=== PATIENT | male | born 1980 | race Caucasian/White ===

== ENCOUNTER → 2019-11-15 12:26 | Outpatient (CLI) | payer OTHER, SELFPAY ==
--- NOTE | 2019-11-15 12:29 | XR_ITS ---
PROCEDURE: XR HAND RT MIN 3V CLINICAL INDICATION: hand mass COMPARISON: No exams were available for comparison FINDINGS: No fracture or dislocation. No lytic or blastic change. There is normal mineralization. The joint spaces are well-preserved. No significant degenerative/arthritic changes. No erosive changes evident. Other findings:There is a focal area of soft tissue swelling along the ulnar aspect of the 5th metacarpophalangeal joint measuring 17 mm. No underlying calcification or bony erosive process. There is a small sclerotic focus along the proximal and ulnar aspect of the middle phalanx of the 3rd digit. IMPRESSION: 1. No acute bony findings. 2. 17 mm soft tissue mass along the 5th metacarpophalangeal joint medially. This may be better evaluated with MRI without and with contrast if clinically warranted Dictated by: Rell Dunlap MD 11/15/2019 12:41 Rell Dunlap MD in [place] 11/15/2019 12:41
== END ==
PROVIDERS: PCP Family Medicine; Visit Provider Orthopaedic Surgery
DX: R22.30 Localized swelling, mass and lump, unspecified upper limb (principal)
CPT/HCPCS: 73130

== ENCOUNTER → 2019-12-06 10:32 | Outpatient (CLI) | payer OTHER, SELFPAY ==
[2019-12-06 14:34] LABS: Coronavirus 19 IgG Antibody Negative (Negative); Coronavirus 19 IgM Antibody Negative (Negative)
== END ==
PROVIDERS: Visit Provider Orthopaedic Surgery
DX: R22.31 Localized swelling, mass and lump, right upper limb (principal); Z01.818 Encounter for other preprocedural examination
CPT/HCPCS: 36415; 86328

== ENCOUNTER 2019-12-07 06:13 | Day surgery (SDC) | payer OTHER, SELFPAY ==
[2019-12-06 10:17] VITALS: BMI 29.5
[2019-12-07] VITALS (12 sets, daily range): BP systolic 116–159; BP diastolic 74–93; PULSE 51–62; RESP 13–18; TEMP 36.1–36.7; O2SAT 94–99
--- NOTE | 2019-12-07 07:41 | HMH.ANESCL ---
[facility] Anesthesia Checklist - Patient Identification Patient Identification: Arm Band - Structural Data Admitted From: Home Planned Operative Procedure/s: excision right hand mass Consent for Planned Operative Procedure(s) Verified: Yes Verified Documents: Surgical Consent, History and Physical - NPO Status Verified Time NPO: 00:00 - Additional verifications Anesthesia Reactions: No Hx Blood Transfusions: No Blood Transfusion Reaction: No - Airway Assessment C-Spine Mobility Assessed: Yes (mp2) TMJ Mobility Assessed: Yes Dentition: Poor Dentition - Neurological Assessment Level of Consciousness: Awake, Alert - Anesthesia Plan Anesthesia Risk discussed: Yes Anesthesia Plan: Verified ASA Class: II Anesthesia Type: General [facility] History I have reviewed the patient's past medical history: Yes Medical History: Reports:: Gastroesophageal Reflux Disease(GERD), Hypertension Denies:: Cancer, Diabetes Mellitus Type 1, Diabetes Mellitus Type 2, Internal Pacemaker, MRSA, Seizures *Have you ever received a pneumonia vaccine?: No *Have you received a flu vaccine this season?: No Other Medical History: Denies: Blood Transfusion Reaction Anesthesia experience/problems:: nac Laterality Cases: Right: Arthroscopy Knee Other Surgeries: Yes: Hernia Repair. No: Pacemaker Amputation: No Fractures: No - *Social History Last grade of school completed: GED Smoking Status: Current every day smoker Tobacco Type: cigarettes # Packs/Day (cigarettes): 1 Alcohol Intake: current Alcohol Intake Frequency:: holidays/special occasions only Substance Use Type: denies use *Occupational Status:: other Housing: house Household Members: spouse *Travel in the last 8 weeks: None Family Hx:: No significant family history
[2019-12-07 08:28] LABS: Basophils # 0.1 K/mm3 (0-0.2); Basophils % 0.9 % (0.1-2.0); Chloride 112 mmol/L (98-107); Eosinophils # 0.3 K/mm3 (0.0-0.4); Eosinophils % 3.3 % (0.1-12.0); Hematocrit 36.7 % (42.0-52.0); Hemoglobin 13.1 g/dL (14.1-18.0); Lymphocytes # 2.9 K/mm3 (0.7-4.5); Lymphocytes % 31.4 % (10-50); Mean Corpuscular HGB Conc 35.8 g/dL (31.8-35.4); Mean Corpuscular Hemoglobin 32.9 pg (27.0-31.2); Mean Corpuscular Volume 91.9 fl (80-94); Mean Platelet Volume 8.3 fl (7.4-10.4); Monocytes # 0.7 K/mm3 (0.1-1.0); Monocytes % 7.5 % (1.7-9.3); Neutrophils # 5.3 K/mm3 (1.8-7.8); Platelet Count 223 K/mm3 (142-424); Potassium 3.9 mmoL/L (3.5-5.1); Red Blood Count 3.99 M/mm3 (4.60-6.20); Red Cell Distribution Width 13.5 % (11.5-17.5); Sodium 139 mmol/L (136-145); White Blood Count 9.2 K/mm3 (4.8-10.8)
[2019-12-07 08:31] LABS: Alanine Aminotransferase 36 U/L (12-78); Albumin Level 3.5 g/dl (3.5-5.0); Albumin/Globulin Ratio 1.4 (1.1-1.8); Alkaline Phosphatase 59 U/L (38-126); Anion Gap 10.9 mEq/L (5-15); Aspartate Amino Transferase 25 U/L (17-59); Bilirubin,Total 0.3 mg/dl (0.2-1.3); Blood Urea Nitrogen 19 mg/dl (9-20); Calcium 8.6 mg/dl (8.4-10.2); Carbon Dioxide 20 mmol/L (22.0-30.0); Creatinine Clearance Estimated 130 mL/min (50-200); Estimated Glomerular Filt Rate 75 ml/min (>60); GFR (African American) 90 ML/MIN (>60); Globulin 2.5 g/dL (1.3-3.2); Glucose 119 mg/dl (74-100)
[2019-12-07 08:37] LABS: C-Reactive Protein 4.5 mg/L (0-4)
--- NOTE | 2019-12-07 09:00 | P.PN_ITS ---
[facility] Anesthesia Record Part I Intake, IV Amount: 1,000 Estimated blood loss (mL): 5 Urine output (mL): 0 Blood Pressure: 128/84 SaO2: 94 Pulse Rate: 57 Respiratory Rate: 16 Temperature: 97.6 F Patient is:: Drowsy, Stable Stable to PACU at:: 08:55
[2019-12-07 09:18] LABS: Erythrocyte Sedimentation Rate 19 mm/hr (0-15)
--- NOTE | 2019-12-07 10:47 | HMH.ANESII ---
[facility] Anesthesia Record Part II Discharge Time: 09:30 Destination: Surgical Day Care (OP Surgery) PACU nurse assessment reviewed?: Yes Patient Condition:: Good Anesthesia Complications:: None Swallowing reflex intact?: Yes Cyanosis?: No Blood Pressure: 127/84 Pulse Rate: 62 Temperature: 98 F Mental Status: Alert & Oriented Pain level:: 0 Nausea and/or vomitting:: None Intake, IV Amount: 0
--- NOTE | 2019-12-07 13:03 | HMH.OPNOTE ---
Date of procedure: 12/07/19 Pre-op Diagnosis:: R hand mass Post-op Diagnosis:: R hand mass Procedure performed:: excision of R hand mass Surgeon:: Luna Rendon MD Metal Neutralizer(s):: Kailey Archuleta [employer] COORDINATOR:: Neno Moffett Anesthesia: regional (wrist block peformed by ), LMA Estimated blood loss (mL): 5 Clinical Note:: 39-year-old [id number] male with a mass over the dorsal/ulnar aspect of the right hand, present for several months. He is unsure when it first appeared. He thinks it may have happened after he hit it on something but doesn't know what/when. He denies any history of open wounds or cuts over this region. No history of similar masses in the past, no history of rheumatoid arthritis, no exposure to thorny plants or known insect bites or animal scratches. The mass is large, relatively immobile and slightly erythematous. No drainage reported from the mass, no numbness or tingling in the fingers. It is beginning to limit his ability to put his hand in his pocket and he would like it removed if possible. MRI was ordered with and without contrast, which was non-specific. I discussed treatment options with the patient, and given the discomfort it gives him, it's location/size, and the inability to exclude malignancy based on MRI, I recommend mass excision. The clinical appearance does not appear consistent with a malignant tumor, but MRI does not exclude this. The mass is small enough that rather than incisional biopsy I would recommend excising the entire mass and sending it for both pathology and culture. Surgical incision will be planned along the lines of possible future surgery including possible amputation. I discussed the risks of the procedure with the patient, including but not limited to: bleeding, infection, neurovascular damage, possibility of further surgical treatment if malignancy found, risk of continued pain and post-op stiffness, and risk of anesthesia. The patient vocalized understanding and informed consent obtained. Operative findings:: mass measured 2.7cm W x 2.1 cm L Operative note:: The patient was identified in preoperative holding and the R hand signed by myself. Consent was verified with the patient and all questions answered. He was then taken to the OR and placed supine on the operative table with a hand table attached. 2 g Ancef were infused and general anesthesia with an LMA. Once the patient was anesthetized a non-sterile tourniquet was placed on the upper R arm and the R hand was prepped and draped in the usual sterile. Timeout was performed, identifying the correct patient, correct procedure, and correct site. The mass was localized over the dorsal/ulnar aspect of the R hand over the 5th metacarpal head. The right upper extremity was elevated for 3 minutes and tourniquet inflated to 250 mmHg. An incision was made longitudinally over the center of the mass, well out of the way for any possible future incisions needed for salvage or amputation procedures. The skin only was incised, and it became immediately obvious that that mass was adherent to the overlying skin. Tenotomy scissors were used to develop a plane between the mass and the skin, and with blunt dissection tissue was dissected circumferentially around the entire mass. Portions of the mass were easily removed, but a large portion of the mass was adherent to the overlying skin. The mass was removed in several pieces, including an elliptical swath of skin in the center of the mass, which would also allow easier/more cosmetic wound closure. The mass was entirely extra-articular and did not involve the extensor tendons. It did envelope a small but dilated vein over the ulnar aspect of the hand, which could not be spared and was tied with 3-0 silk ties and transected. No nerves were visualized. The mass itself was firm and rubbery, yellowish-white in color, without obvious purulent or necrotic material, no foul smell. Of note, I did see what may be a small forieg
== END 2019-12-07 10:05 | disposition home or self-care (01) ==
LOC: OR 06:14
PROVIDERS: PCP Family Medicine; Visit Provider Orthopaedic Surgery
PROC: (CPT 26111; principal; 2019-12-07 07:30)
DX: R22.41 Localized swelling, mass and lump, right lower limb (principal)
CPT/HCPCS: 26111; 80053; 85025; 85651; 86140; 87070; 87075; 87102; 87205; 87206; 96374; J2405

== ENCOUNTER → 2020-12-07 09:00 | Outpatient (CLI) | payer OTHER, SELFPAY ==
[2020-12-07 10:35] LABS: Chloride 109 mmol/L (98-107); Potassium 4.4 mmoL/L (3.5-5.1); Sodium 144 mmol/L (136-145)
[2020-12-07 10:38] LABS: Alanine Aminotransferase 30 U/L (12-78); Albumin Level 4.2 g/dl (3.5-5.0); Albumin/Globulin Ratio 1.4 (1.1-1.8); Alkaline Phosphatase 75 U/L (38-126); Anion Gap 16.4 mEq/L (5-15); Aspartate Amino Transferase 26 U/L (17-59); Bilirubin,Total 0.4 mg/dl (0.2-1.3); Blood Urea Nitrogen 14 mg/dl (9-20); Calcium 9.7 mg/dl (8.4-10.2); Carbon Dioxide 23 mmol/L (22.0-30.0); Chol/HDL Ratio 9.2 (1-3.5); Cholesterol 193 mg/dl (140-200); Estimated Glomerular Filt Rate 67 ml/min (>60); GFR (African American) 81 ML/MIN (>60); Globulin 2.9 g/dL (1.3-3.2); Glucose 107 mg/dl (74-100); HDL Cholesterol 21 mg/dl (40-60); Total Protein,Serum 7.1 g/dl (6.3-8.2)
[2020-12-07 10:39] LABS: Triglycerides 445 mg/dl (30-150)
[2020-12-07 10:50] LABS: Direct LDL Cholesterol 85.42 mg/dL (100-129)
[2020-12-07 10:57] LABS: Creatinine,Urine Random 95 mg/dL (Not Estab.)
[2020-12-07 11:06] LABS: Microalbumin < 6.000 mg/L (0-16.7)
[2020-12-07 11:10] LABS: Thyroid Stimulating Hormone 2.32 uIU/mL (0.465-4.68)
== END ==
PROVIDERS: Visit Provider Family Medicine
DX: I10 Essential (primary) hypertension (principal); Z79.899 Other long term (current) drug therapy
CPT/HCPCS: 36415; 80053; 80061; 82043; 82570; 84443

== ENCOUNTER → 2021-01-17 10:39 | Outpatient (CLI) | payer OTHER, SELFPAY ==
[2021-01-17 11:45] LABS: Barbiturates Screen,Urine Negative ng/ml (<200); Benzodiazepines Screen,Urine Negative ng/ml (<200)
[2021-01-17 11:46] LABS: Amphetamine/Metha Screen,Urine Negative ng/ml (<1000)
[2021-01-17 11:47] LABS: Cannabinoid Screen,Urine Negative ng/ml (<50); Methadone Screen,Urine Negative ng/ml (<300)
[2021-01-17 11:48] LABS: Cocaine Screen,Urine Negative ng/ml (<300); Opiate Screen,Urine Negative ng/ml (<300)
[2021-01-17 11:49] LABS: Phencyclidine Screen,Urine Negative ng/ml (<25)
== END ==
PROVIDERS: Visit Provider Physician Assistant
DX: Z02.1 Encounter for pre-employment examination (principal)
CPT/HCPCS: 80305

== ENCOUNTER → 2021-03-07 08:52 | Outpatient (CLI) | payer BC, OTHER, SELFPAY | PROVIDERS: PCP Family Medicine; Visit Provider Nurse Practitioner | DX: U07.1 COVID-19 (principal) | CPT/HCPCS: C9803; U0003; U0005 ==

== ENCOUNTER → 2021-03-09 10:18 | Outpatient (CLI) | payer BC, OTHER, SELFPAY | PROVIDERS: PCP Family Medicine; Visit Provider Nurse Practitioner | DX: Z20.822 Contact with and (suspected) exposure to COVID-19 (principal) | CPT/HCPCS: C9803; U0003; U0005 ==

== ENCOUNTER → 2022-01-11 18:29 | Outpatient (CLI) | payer BC, OTHER, SELFPAY ==
[2022-01-11 18:59] LABS: Adenovirus,PCR Not Detected (NotDetected); Bordetella Pertussis Not Detected (NotDetected); Chlamydophila Pneumoniae, PCR Not Detected (NotDetected); Coronavirus 19, PCR Not Detected (NotDetected); Coronavirus 229E Not Detected (NotDetected); Coronavirus NL63 Not Detected (NotDetected); Coronavirus OC43 Not Detected (NotDetected); Coronovirus HKU1,PCR Not Detected (NotDetected); Human Metapneumovirus Not Detected (NotDetected); Influenza A, PCR Not Detected (NotDetected); Influenza AH1, 2009 Not Detected (NotDetected); Influenza AH1, PCR Not Detected (NotDetected); Influenza AH3,PCR Not Detected (NotDetected); Influenza B, PCR Not Detected (NotDetected); Mycoplasma Pneumoniae, PCR Not Detected (NotDetected); Parainfluenza 1, PCR Not Detected (NotDetected); Parainfluenza 2, PCR Not Detected (NotDetected); Parainfluenza 3, PCR Not Detected (NotDetected); Parainfluenza 4, PCR Not Detected (NotDetected); Respiratory Syncytial Virus Not Detected (NotDetected); Rhinovirus/Enterovirus Not Detected (NotDetected)
[2022-01-11 19:01] LABS: Basophils # 0.1 K/mm3 (0-0.2); Basophils % 0.8 % (0.1-2.0); Eosinophils # 0.2 K/mm3 (0.0-0.4); Eosinophils % 2.6 % (0.1-12.0); Hematocrit 41.4 % (42.0-52.0); Hemoglobin 13.9 g/dL (14.1-18.0); Lymphocytes # 2.8 K/mm3 (0.7-4.5); Lymphocytes % 29.8 % (10-50); Mean Corpuscular HGB Conc 33.6 g/dL (31.8-35.4); Mean Corpuscular Hemoglobin 32.2 pg (27.0-31.2); Mean Corpuscular Volume 95.8 fl (80-94); Mean Platelet Volume 8.3 fl (7.4-10.4); Monocytes # 0.7 K/mm3 (0.1-1.0); Neutrophils # 5.5 K/mm3 (1.8-7.8); Neutrophils % 59.8 % (37.0-80.0); Platelet Count 255 K/mm3 (142-424); Red Blood Count 4.32 M/mm3 (4.60-6.20); Red Cell Distribution Width 13.2 % (11.5-17.5); White Blood Count 9.3 K/mm3 (4.8-10.8)
== END ==
PROVIDERS: PCP Family Medicine; Visit Provider Family Medicine
DX: Z20.822 Contact with and (suspected) exposure to COVID-19 (principal)
CPT/HCPCS: 36415; 85025; 87581; 87632; 87798; C9803; U0003; U0005

== ENCOUNTER → 2022-02-10 16:53 | Outpatient (CLI) | payer BC, OTHER, SELFPAY ==
--- NOTE | 2022-02-10 | XR_ITS ---
PROCEDURE INFORMATION: Exam: XR Right Wrist Exam date and time: 02/10/2022 5:05 PM Age: 41 years old Clinical indication: Pain; Wrist; Right; Additional info: Wrist and hand pain TECHNIQUE: Imaging protocol: Radiologic exam of the Right wrist. Views: 3 or more views. COMPARISON: 3T MR HAND RIGHT W/WO 11/29/2019 8:59 AM FINDINGS: Bones/joints: There is a small linear lucency projecting over the dorsal margin of the proximal carpal role seen on the lateral exam inconclusive for a hairline fracture involving the lunate bone. Remaining osseous structures are unremarkable. Soft tissues: Normal. IMPRESSION: Findings inconclusive for hairline fracture involving the dorsal aspect of the lunate bone. Please correlate with clinical exam. If further evaluation is felt warranted a CT exam of the wrist is recommended.
--- NOTE | 2022-02-10 | XR_ITS ---
PROCEDURE INFORMATION: Exam: XR Right Hand Exam date and time: 02/10/2022 5:05 PM Age: 41 years old Clinical indication: Pain; Hand; Right; Additional info: Wrist and hand pain TECHNIQUE: Imaging protocol: Radiologic exam of the Right hand. Views: 3 or more views. COMPARISON: 3T MR HAND RIGHT W/WO 11/29/2019 8:59 AM FINDINGS: Bones/joints: Normal. No fracture or malalignment. Joint surfaces preserved. Soft tissues: Normal. IMPRESSION: Normal examination right hand.
== END ==
PROVIDERS: PCP Family Medicine; Visit Provider Family Medicine
DX: M79.641 Pain in right hand (principal)
CPT/HCPCS: 73110; 73130

== ENCOUNTER 2022-02-12 10:52 | Outpatient (RCR) | payer OTHER, SELFPAY | END 2022-02-12 12:00 | disposition home or self-care (01) | LOC: OT 10:52 | PROVIDERS: Visit Provider Orthopaedic Surgery | DX: M25.531 Pain in right wrist (principal) | CPT/HCPCS: 97763 ==

== ENCOUNTER → 2022-03-18 09:05 | Outpatient (CLI) | payer OTHER, SELFPAY ==
--- NOTE | 2022-03-18 09:11 | MR_ITS ---
FINAL REPORT CLINICAL HISTORY: right wrist pain. MEDIAL SIDED WRIST PAIN. NO INJURY OR TRAUMA. FINDINGS: Multiplanar MR imaging of the right wrist was performed without contrast. There is motion on some of the images which decreases sensitivity of the exam. There are mild degenerative changes. The bony structures are intact without evidence of fracture, bone bruise or marrow edema. There is no evidence of intrinsic ligament injury. The triangular fibrocartilage is intact. The flexor and extensor tendons are intact. There is a lobular fluid collection along the volar aspect of the wrist measuring 9 mm and is consistent with a ganglion cyst. There is a questionable 9 mm ganglion cyst distal to the ulnar styloid process. This may also represent a joint recess. There is a small joint effusion. No focal abnormality is identified of the median nerve. IMPRESSION: 9 mm ganglion cyst along the volar aspect of the wrist. Questionable 9 mm ganglion cyst distal to the ulnar styloid process, may also represent a joint recess. Reviewed, Interpreted and Dictated by Victor M Cha III, MD Transcribed by Annalise Richard Authenticated and [facility]
--- NOTE | 2022-03-18 09:15 | XR_ITS ---
FINAL REPORT CLINICAL HISTORY: RULE OUT METAL FOREIGN BODY FOR MRI FINDINGS: ORBITS Look up and look down views were obtained. No fracture is identified. The sinuses are clear. No foreign body is identified. IMPRESSION: No acute process. Reviewed, Interpreted and Dictated by Victor M Cha III, MD Transcribed by Homar Marley Authenticated and [facility]
== END ==
PROVIDERS: PCP Family Medicine; Visit Provider Orthopaedic Surgery
DX: S62.121A Displaced fracture of lunate [semilunar], right wrist, initial encounter for closed fracture (principal); H05.53 Retained (old) foreign body following penetrating wound of bilateral orbits
CPT/HCPCS: 70200; 73221